=== PATIENT | female | born 1950 | race African-American/Black ===

== ENCOUNTER 2017-01-14 18:21 | Emergency (ER) | payer MEDICARE ==
[2017-01-14 18:27] VITALS: BP 144/54; PULSE 91; TEMP 98.6; BMI 41.8
--- NOTE | 2017-01-14 18:38 | PDOC ---
History of Present Illness - General Chief Complaint: Pain, Acute Stated Complaint: Leg pain, US of legs Time Seen by Provider: 01/14/17 18:30 History Source: Patient Exam Limitations: No Limitations - History of Present Illness Initial Comments: 01/14/17 18:53 Patient was sent from urgent care for evaluation and ultrasound of bilateral legs. Is a breast cancer survivor currently taking tamoxifen was seen at that Center for bilateral leg pain. Patient denies swelling but states has pain to both posterior fossa and suffers from history of varicosities. Patient denies pain, numbness or tingling. Denies shortness of breath fevers any recent trauma however states went back and forth from [place] over the weekend with a 3- 1/2 hour car ride in a small cramped car. Patient has no history of DVT but due to her risk factors urgent care felt it necessary to have ultrasound of bilateral legs to rule out DVT. Pain Location: reports: none, lower extremity (bilateral legs ) Associated Symptoms (Fall): denies symptoms Past History - Travel Traveled outside of the country in the last 30 days: No Close contact w/someone who was outside of country & ill: No - Past Medical History Allergies/Adverse Reactions: Allergies Allergy/AdvReac Type Severity Reaction Status Date / Time Penicillins Allergy Verified 01/14/17 18:27 Home Medications: Ambulatory Orders Atenolol [Tenormin -] 25 mg PO DAILY 01/14/17 Diltiazem HCl [Diltiazem 24Hr Cd] 180 mg PO ASDIR 01/14/17 Ibuprofen 400 mg PO ASDIR 01/14/17 Venlafaxine HCl ER [Effexor Xr -] 150 mg PO DAILY 01/14/17 Cancer: Yes (breast cancer) HTN: Yes Hypercholesterolemia: Yes - Psycho/Social/Smoking Cessation Hx Suicidal Ideation: No Smoking History: Never smoked Information on smoking cessation initiated: No Hx Alcohol Use: No Drug/Substance Use Hx: No Substance Use Type: None Review of Systems - Review of Systems Able to Perform ROS?: Yes Is the patient limited Ivorian proficient: Yes Constitutional: Yes: Symptoms Reported, See HPI, Malaise HEENTM: Yes: See HPI. No: Symptoms Reported Respiratory: Yes: See HPI. No: Symptoms reported, Cough ABD/GI: No: Symptoms Reported Musculoskeletal: Yes: Symptoms Reported All Other Systems: Reviewed and Negative *Physical Exam - Vital Signs Last Vital Signs Temp Pulse Resp BP Pulse Ox 98.6 F 91 H 18 144/54 97 01/14/17 18:25 01/14/17 18:25 01/14/17 18:25 01/14/17 18:25 01/14/17 18:25 - Physical Exam General Appearance: Yes: Appropriately Dressed, Apparent Distress HEENT: positive: RICHARDSON, Normal ENT Inspection, TMs Normal Neck: positive: Supple. negative: Tender, Lymphadenopathy (R) Respiratory/Chest: positive: Lungs Clear, Normal Breath Sounds Cardiovascular: positive: Regular Rhythm Musculoskeletal: positive: Normal Inspection. negative: Vertebral Tenderness Extremity: positive: Normal Capillary Refill, Other (patient with NSAIDs of bilateral varicosities , no peripheral edema past no noted peripheral edema, neurovascular intact to feet, no disease skin changes and feet are cool but nontender. Thighs are obese but no reproduced tenderness with deep palpation from groin down to ankle) Integumentary: positive: Normal Color, Dry, Warm. 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 Patient has risk factors but clinically does not appear to have any pathology. Will obtain bilateral ultrasounds per urgent care/patient request. Medical Decision Making - Medical Decision Making 01/14/17 19:42 Bilateral ultrasound negative for DVT or other pathology. Charge follow-up with PMD as needed and provided information about vascular surgery to have varicosities evaluated *DC/Admit/Observation/Transfer Diagnosis at time of Disposition: Acute leg pain Qualifiers: Laterality: unspecified laterality Qualified Code(s): M79.606 - Pain in leg, unspecified - Discharge Dispostion Disposition: HOME Condition at time of disposition: Stable Admit: No - Referrals Referrals: STAFF,NOT ON [Primary Care Provider] - Jose Daniel Juarez MD [Staff Physician] - - Patient Instructions Printed Discharge Instructions: DI for Leg Pain Additional Instructions: Rest, ice to area on and off for 15 minutes 4-6 times a day Avoid heavy lifting or exercise until pain and swelling is resolved or until further directed Keep area highly elevated to reduce swelling Use splints/Luke wrap as directed Followup with orthopedist in one to 2 days if not improving, if significantly improved may wait one week for followup with orthopedist May use ibuprofen 2-200 mg tablets every 6 hours as needed for pain Consider vascular surgeon consult to evaluate varicose veins
== END 2017-01-14 19:53 | disposition home or self-care (01) ==
LOC: JERFT 18:21
DX: M79.604 Pain in right leg (principal); I10 Essential (primary) hypertension; E78.00 Pure hypercholesterolemia, unspecified; Z85.3 Personal history of malignant neoplasm of breast
CPT/HCPCS: 93970-TC; 99281-25

== ENCOUNTER 2019-04-09 16:15 | Emergency (ER) | payer MEDICARE, OTHER ==
[2019-04-09 16:43] VITALS: BMI 40.8
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
[2019-04-09 18:11] LABS: BASO % 0.5 % (0-2.0); EOS % 4.1 % (0-4.5); HEMATOCRIT 40.8 % (32.4-45.2); HEMOGLOBIN 13.4 GM/dL (10.7-15.3); LYMPH % 24.4 % (8-40); MCHC 32.9 g/dl (32.0-36.0); MEAN CELL VOLUME 91.2 fl (80-96); MEAN PLT VOLUME 9.4 fl (7.5-11.1); MONO % 9.7 % (3.8-10.2); NEUT % 61.3 % (42.8-82.8); RBC 4.47 M/mm3 (3.60-5.2); RDW 14.5 % (11.6-15.6); WHITE BLOOD COUNT 5.8 K/mm3 (4.0-10.0)
[2019-04-09 18:32] LABS: EPI CELLS 4.4 /HPF (0-5/HPF); HYALINE CASTS 13 /lpf (0-8); URINE APPEARANCE CLEAR; URINE BACTERIA 30.3 /hpf (NEGATIVE); URINE BILIRUBIN NEGATIVE (NEGATIVE); URINE COLOR DK YELLOW; URINE GLUCOSE (UA) NEGATIVE (NEGATIVE); URINE KETONE 1+ (NEGATIVE); URINE LEUK ESTERASE 1+ (NEGATIVE); URINE NITRITE NEGATIVE (NEGATIVE); URINE PROTEIN TRACE (NEGATIVE); URINE RBC 10 /hpf (0-4); URINE WBC 5 /hpf (0-5)
[2019-04-09 18:52] LABS: PLATELET COUNT 174 K/MM3 (134-434)
[2019-04-09 18:57] LABS: COCAINE, UR NEGATIVE ng/ml (CUTOFF=300); METHADONE, UR NEGATIVE ng/ml (CUTOFF=300); OPIATES, URI NEGATIVE ng/ml (CUTOFF=300); PHENCYCLIDINE,URINE NEGATIVE ng/ml (CUTOFF=25); URINE AMPHETAMINES NEGATIVE ng/ml (CUTOFF=500); URINE BARBITURATES NEGATIVE ng/ml (CUTOFF=200); URINE BENZODIAZEPINES NEGATIVE ng/ml (CUTOFF=200)
[2019-04-09 20:00] LABS: ALBUMIN 3.4 g/dl (3.4-5.0); ALK PHOS 68 U/L (45-117); ANION GAP 8 MMOL/L (8-16); BILIRUBIN,TOTAL 0.1 mg/dL (0.2-1); BLOOD UREA NITROGEN 21.4 mg/dL (7-18); CALCIUM 8.7 mg/dL (8.5-10.1); CHLORIDE 112 mmol/L (98-107); CO2 26 mmol/L (21-32); CREATININE 1.3 mg/dL (0.55-1.3); GLUCOSE,RANDOM 126 mg/dL (74-106); MAGNESIUM 2.4 mg/dL (1.8-2.4); POTASSIUM 4.2 mmol/L (3.5-5.1); SGOT/AST 28 U/L (15-37); SGPT/ALT 24 U/L (13-61); SODIUM 146 mmol/L (136-145); TOT PROT 6.6 g/dl (6.4-8.2)
[2019-04-09] MEDS ORDERED: SODIUM CHLORIDE 0.9% 500 ML INFUS.BAG IV ONE (20:03)
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
[2019-04-09] MEDS ORDERED: OLANZapine 5 MG TABLET PO ONE (20:15)
[2019-04-09] MEDS ORDERED: OLANZapine 10 MG TABLET ONE (20:52)
--- NOTE | 2019-04-10 02:18 | PDOC ---
*Physical Exam - Vital Signs Last Vital Signs Temp Pulse Resp BP Pulse Ox 99.0 F 97 H 14 128/67 98 04/09/19 18:49 04/09/19 18:49 04/09/19 18:49 04/09/19 18:49 04/09/19 18:49 - Physical Exam General Appearance: Yes: Nourished, Appropriately Dressed, Apparent Distress HEENT: positive: EOMI, RICHARDSON, Normal Voice, Symmetrical. negative: Scleral Icterus (R), Scleral Icterus (L) Neck: positive: Normal Thyroid, Supple Respiratory/Chest: positive: Lungs Clear, Normal Breath Sounds. negative: Respiratory Distress Cardiovascular: positive: Regular Rhythm, Regular Rate, Edema. negative: Murmur , Gallop/S3, Gallop/S4 Gastrointestinal/Abdominal: positive: Normal Bowel Sounds, Soft. 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, Fully Oriented, Alert, Normal Mood/ Affect, Normal Response, Motor Strength /5 ED Treatment Course - LABORATORY CBC & Chemistry Diagram: 04/09/19 17:33 04/09/19 17:33 - ADDITIONAL ORDERS Additional order review: Laboratory Results 04/09/19 04/09/19 04/09/19 17:33 17:33 17:33 Sodium 146 H Potassium 4.2 Chloride 112 H Carbon Dioxide 26 Anion Gap 8 BUN 21.4 H Creatinine 1.3 Est GFR (CKD-EPI)AfAm 48.82 Est GFR (CKD-EPI)NonAf 42.12 Random Glucose 126 H Calcium 8.7 Magnesium 2.4 Total Bilirubin 0.1 L AST 28 ALT 24 Alkaline Phosphatase 68 Creatine Kinase 391 H Creatine Kinase Index 0.3 CK-MB (CK-2) 1.4 Troponin I < 0.02 Total Protein 6.6 Albumin 3.4 TSH 0.63 Urine Color Dk yellow Urine Appearance Clear Urine pH 5.0 Ur Specific [place] 1.035 Urine Protein Trace Urine Glucose (UA) Negative Urine Ketones 1+ H Urine Blood 1+ H Urine Nitrite Negative Urine Bilirubin Negative Urine Urobilinogen 1.0 Ur Leukocyte Esterase 1+ H Urine WBC (Auto) 5 Urine RBC (Auto) 10 Urine Casts (Auto) 13 U Epithel Cells (Auto) 4.4 Urine Bacteria (Auto) 30.3 Salicylates < 1.7 L Opiates Screen Negative Methadone Screen Negative Acetaminophen < 2.0 L Barbiturate Screen Negative Phencyclidine Screen Negative Ur Amphetamines Screen Negative MDMA (Ecstasy) Screen Negative Benzodiazepines Screen Negative Cocaine Screen Negative U Marijuana (THC) Screen Negative Alcohol, Quantitative < 3.0 04/09/19 17:33 RBC 4.47 MCV 91.2 MCHC 32.9 RDW 14.5 MPV 9.4 Neutrophils % 61.3 Lymphocytes % 24.4 Monocytes % 9.7 Eosinophils % 4.1 Basophils % 0.5 - Medications Given in the ED: ED Medications Discontinued Medications Generic Name Dose Route Start Last Admin Trade Name Freq PRN Reason Stop Dose Admin Olanzapine 5 mg 04/09/19 20:15 04/09/19 21:06 Zyprexa - PO 04/09/19 20:16 5 mg ONCE ONE Administration Sodium Chloride 1,000 ml 04/09/19 20:03 04/09/19 21:06 Normal Saline - IV 04/09/19 20:04 Not Given ONCE ONE Medical Decision Making - Medical Decision Making 04/10/19 02:[address] Bhardwaj. Schizoaffective disorder with paranoid delusions, off meds 2 weeks. Gave olanzapine 5mg. Pending psych in AM, follow reccs. 04/10/19 07:31 Patient reports some lightheadedness and unsteady gait, otherwise feels well. Denies SI or auditory/visual hallucinations, but believes that pharmacy must be manipulating her meds to cause SOB and malodorous vagina. Hungry and would like some food, discussed plan to speak with our Psych today. Signed out to Dr. Weir in ED. *DC/Admit/Observation/Transfer Diagnosis at time of Disposition: Schizoaffective disorder - Referrals Referrals: ON STAFF,NOT [Primary Care Provider] - - Patient Instructions - Post Discharge Activity
[2019-04-10 06:15] VITALS: PULSE 80
[2019-04-10 07:13] VITALS: BP 131/65; TEMP 98
--- NOTE | 2019-04-10 07:27 | PDOC ---
*Physical Exam - Vital Signs Last Vital Signs Temp Pulse Resp BP Pulse Ox 98.0 F 80 18 131/65 97 04/10/19 07:12 04/10/19 07:12 04/10/19 07:12 04/10/19 07:12 04/10/19 07:12 - Physical Exam General Appearance: Yes: Nourished, Appropriately Dressed HEENT: positive: EOMI, [place], Normal ENT Inspection, Normal Voice, Symmetrical, Hearing Grossly Normal Neck: positive: Trachea midline, Normal Thyroid, Supple Respiratory/Chest: positive: Lungs Clear, Normal Breath Sounds Cardiovascular: positive: Regular Rhythm, Regular Rate. negative: Murmur Gastrointestinal/Abdominal: positive: Normal Bowel Sounds, Soft. negative: Protuberent, Distended, Rebound, Tenderness Musculoskeletal: positive: Normal Inspection. negative: CVA Tenderness Extremity: positive: Normal Inspection, Normal Range of Motion. negative: Tender Integumentary: positive: Normal Color, Dry, Warm Neurologic: positive: plaster caster II-XII NML intact, Fully Oriented, Alert, Normal Mood/ Affect, Normal Response, Motor Strength 02/06 ED Treatment Course - LABORATORY CBC & Chemistry Diagram: 04/09/19 17:33 04/09/19 17:33 - ADDITIONAL ORDERS Additional order review: Laboratory Results 04/09/19 17:33 Sodium 146 H Potassium 4.2 Chloride 112 H Carbon Dioxide 26 Anion Gap 8 BUN 21.4 H Creatinine 1.3 Est GFR (CKD-EPI)AfAm 48.82 Est GFR (CKD-EPI)NonAf 42.12 Random Glucose 126 H Calcium 8.7 Magnesium 2.4 Total Bilirubin 0.1 L AST 28 ALT 24 Alkaline Phosphatase 68 Creatine Kinase 391 H Creatine Kinase Index 0.3 CK-MB (CK-2) 1.4 Troponin I < 0.02 Total Protein 6.6 Albumin 3.4 TSH 0.63 Salicylates < 1.7 L Acetaminophen < 2.0 L Alcohol, Quantitative < 3.0 04/09/19 17:33 RBC 4.47 MCV 91.2 MCHC 32.9 RDW 14.5 MPV 9.4 Neutrophils % 61.3 Lymphocytes % 24.4 Monocytes % 9.7 Eosinophils % 4.1 Basophils % 0.5 - Medications Given in the ED: ED Medications Discontinued Medications Generic Name Dose Route Start Last Admin Trade Name Freq PRN Reason Stop Dose Admin Olanzapine 5 mg 04/09/19 20:15 04/09/19 21:06 Zyprexa - PO 04/09/19 20:16 5 mg ONCE ONE Administration Sodium Chloride 1,000 ml 04/09/19 20:03 04/09/19 21:06 Normal Saline - IV 04/09/19 20:04 Not Given ONCE ONE Progress Note - Progress Note Progress Note: 68 yo F, PMH schizoaffective disorder, sciatica, breast cancer on tamoxifen BIBEMS after her brother called after 2 weeks without medications. She believes that her medications were "being changed at the drugstore", and causing her to "soil myself, and make my vagina and underarms smell really bad". She also feels that they make her sweat a ton. She states that her doctors had said that her medications should not be giving her any side effects. She denies hearing the radio talking to her, seeing things that other people don't see, or hearing things that others don't hear. She denies suicidal ideation and says she has never attempted to harm herself. She is hungry and would like to eat. ROS: Occasional loss of balance while walking, but is not experiencing that currently. "Weak all over" Leg pain, which she attributes to her sciatica. Diarrhea "4 or 5 days ago" but is not experiencing this currently. Eyesight is blurry due to her cataracts, but she has been told they are not ready to be removed yet. She denies CP, SOB, LITTLE, fevers/chills, constipation, hearing changes, and abdominal pain. [id number] Giraldo. Patient normally sees Dr. Macias at [facility] and is followed by Oncology at [facility], but states that she wants a new psychiatrist. Clarified that the symptom that was bothering her the most was excessive sweating. It was explained to her that this is a common side effect of Effexor. She says that she does not plan to take her medications at this time, but is willing to see her doctors. She verifies that she does not want to hurt herself or anyone else. Medical Decision Making - Medical Decision Making Received signout from Dr. HEARD. 04/10/19 07:17 Will CTM, await input from psychiatry. 04/10/19 07:38 *DC/Admit/Observation/Transfer Diagnosis at time of Disposition: Schizoaffective disorder - Discharge Dispostion Disposition: HOME Condition at time of disposition: Improved Decision to Admit order: No - Referrals Referrals: ON STAFF,NOT [Primary Care Provider] - - Patient Instructions Printed Discharge Instructions: Taking Prescription Medications, DI for Schizoaffective Disorder Additional Instructions: Please take your medications and see your doctors for further management. Return to the ED if you have worsening confusion, begin to develop delusions or experience hallucinations, or have thoughts of hurting yourself or others. - Post Discharge Activity
--- NOTE | 2019-04-10 08:52 | CON.PSY ---
Psychiatry Consult Chief Complaint: I stopped mt medication because *I weas swetting a lot. I take Effexor, Zyprexa and Temaxafine,. I see a Pstchiatriast @ [facility] [place]. I thought My Pharmacy was giving me wrong medication. I feel ok now. I dont have any thoughts of hurting my self or others. Symptoms: reports: Paranoia - Previous Psychiatric Treatment Outpatient: Less than 6 mos ago Inpatient: One prior admission - Previous Substance Abuse Treatment Outpatient: None Inpatient: None - Reason for Previous Treatment Reason for Previous Treatment: Psychotic Episode - Allergies Allergies: Allergies Allergy/AdvReac Type Severity Reaction Status Date / Time Penicillins Allergy Verified 04/09/19 16:31 - Current Living Status Usual Living Arrangement: Alone - Current Mental Status Evaluation Appearance: Well Groomed Attitude: Suspicious - Mood Mood: Euthymic - Speech/Language Expressive: Coherent - Psychomotor Activity Psychomotor Activity: Slowed - Thought Process Thought Process: Intact - Thought Content Hallucinations: Absent Delusions: Present Type: Persectory - Self Perception Self Perception: No Impairment - Cognition Attention: Alert Orientation: Time Memory, Immediate Recall: Intact Memory, Short Term: 3/3 Memory, Remote with Promptin/3 - Concentration Serial Sevens Intact: No Simple Calculations Intact: Yes - Insight Insight: Intact - Impulse Control Impulse Control: Good Control - Suicidal Ideation Suicidal Ideation: No - Homicidal Ideation Homicidal Ideation: No Assessment/Plan 1) Patient is not suicidal or Homicidal at thi9s time. 2) Discharge home, will see her Psych @ [facility] in [place]. 3) [id number] has meds at home.
--- NOTE | 2019-04-10 13:09 | EKG ---
Test Reason : Blood Pressure : / mmHG Vent. Rate : 088 BPM Atrial Rate : 088 BPM P-R Int : 164 ms QRS Dur : 080 ms QT Int : 348 ms P-R-T Axes : 048 000 028 degrees QTc Int : 421 ms NORMAL SINUS RHYTHM NORMAL ECG WHEN COMPARED WITH ECG OF 09-APR-2019 18:22, NO SIGNIFICANT CHANGE WAS FOUND Confirmed by MD MCBRIDE MOYSES ([id number]) on 04/10/2019 1:09:14 PM Referred By: Confirmed By:RANDALL MCBRIDE MD
== END 2019-04-10 09:24 | disposition home or self-care (01) ==
LOC: JER 16:15
DX: F25.8 Other schizoaffective disorders (principal); M54.30 Sciatica, unspecified side; I10 Essential (primary) hypertension; Z85.3 Personal history of malignant neoplasm of breast
CPT/HCPCS: 36415; 71045-TC-FY; 80053; 80307; 81003; 82550; 82553; 83735; 84443; 84484; 85025; 87086; 93005; 93010; 99283-25